=== PATIENT | male | born 1960 | race Caucasian/White ===

== ENCOUNTER → 2016-10-16 | Outpatient (CLI) | payer BC ==
[2015-11-25 16:10] VITALS: BP 128/83
[~2016-10-16] MED LIST: ASPIRIN E.C. 8181 MG PO; OMEGA 3 1,0001 EACH PO
== END ==
LOC: RAD 15:23
DX: R07.9 Chest pain, unspecified (principal); I34.0 Nonrheumatic mitral (valve) insufficiency

== ENCOUNTER → 2016-12-28 | Outpatient (CLI) | payer BC ==
[~2016-12-28] VITALS: Ht 182.9 cm; Wt 91.8 kg
[~2016-12-28] MED LIST changes: +ALEVE220 M1 PO; +NATURAL B COMPL PO; +NEURONTIN100 M1 PO; +NITROSTAT0.4 M1 SL; +PREVACID15 M1
[2016-12-28 11:14] VITALS: BP 139/85
== END ==
LOC: RAD 10:41
DX: I20.1 Angina pectoris with documented spasm (principal); I21.4 Non-ST elevation (NSTEMI) myocardial infarction; E78.5 Hyperlipidemia, unspecified

== ENCOUNTER → 2017-03-19 | Outpatient (CLI) | payer BC ==
[2016-12-28 11:14] VITALS: BP 139/85
[2017-03-19 07:33] LABS: EOS # 0.1 (0.04-0.40); EOS % 1.7 % (0.0-4.0); HEMATOCRIT 45.4 % (42.0-52.0); HEMOGLOBIN 15.6 g/dL (13.5-18.0); LYMPH# 2.1 (1.50-4.00); MEAN CELL VOLUME 87 fl (78-100); MEAN CORPUSCULAR HEMOGLOBIN 30 pg (27-31); MEAN CORPUSCULAR HGB CONC 34 g/dL (33-37); MEAN PLATELET VOLUME 9.1 fl (7.4-10.4); MONO # 0.5 (0.20-0.80); NEU # 2.6 (1.40-6.50); PLATELET COUNT 247 K/mm3 (130-400); RED BLOOD COUNT 5.22 M/mm3 (4.20-5.60); RED CELL DISTRIBUTION WIDTH 12.9 % (11.5-14.5); WHITE BLOOD COUNT 5.3 K/mm3 (4.8-10.8)
[2017-03-19 07:43] LABS: ALBUMIN 3.9 g/dL (3.5-5.0); BUN/CREATININE RATIO 19.1 (6.0-26.0); POTASSIUM 4.4 mmol/L (3.6-5.0); TOTAL BILIRUBIN 0.8 mg/dL (0.2-1.3)
[2017-03-19 07:52] LABS: URINE APPEARANCE CLEAR; URINE BILIRUBIN NEGATIVE (NEGATIVE); URINE BLOOD NEGATIVE (NEGATIVE); URINE COLOR YELLOW; URINE GLUCOSE NEGATIVE (NEGATIVE); URINE KETONE NEGATIVE (NEGATIVE); URINE LEUKOCYTE ESTERASE NEGATIVE (NEGATIVE); URINE NITRATE NEGATIVE (NEGATIVE); URINE PROTEIN(semi-quant) TRACE mg/dL (NEGATIVE); URINE UROBILINOGEN NORMAL (NORMAL); URINE WBC 0-1 /hpf (0-3)
== END ==
LOC: LAB 07:11
PROVIDERS: Nurse Practitioner Family
DX: R63.1 Polydipsia (principal); R00.2 Palpitations; R23.2 Flushing; R53.81 Other malaise; R63.2 Polyphagia

== ENCOUNTER → 2017-09-15 | Outpatient (CLI) | payer BC ==
[2016-12-28 11:14] VITALS: BP 139/85
== END ==
LOC: RAD 09:55
DX: M17.0 Bilateral primary osteoarthritis of knee (principal)

== ENCOUNTER → 2018-02-24 | Outpatient (CLI) | payer OTHER, BC ==
[~2018-02-24] VITALS: Ht 182.9 cm; Wt 94.5 kg
[~2018-02-24] MED LIST changes: +LEVOCETIRIZINE D5 MG PO; +PRILOSEC 20MG20 MG PO; +TYLENOL325 M1 PO
[2018-02-24 09:11] LABS: PROTHROMBIN TIME 10.4 SECONDS (9.0-12.0)
[2018-02-24 09:15] LABS: EOS # 0.1 (0.04-0.40); EOS % 2.3 % (0.0-4.0); HEMATOCRIT 43.4 % (42.0-52.0); HEMOGLOBIN 14.4 g/dL (13.5-18.0); LYMPH# 1.3 (1.50-4.00); MEAN CELL VOLUME 84 fl (78-100); MEAN CORPUSCULAR HEMOGLOBIN 28 pg (27-31); MEAN CORPUSCULAR HGB CONC 33 g/dL (33-37); MEAN PLATELET VOLUME 9.6 fl (7.4-10.4); MONO # 0.4 (0.20-0.80); NEU # 2.5 (1.40-6.50); PLATELET COUNT 204 K/mm3 (130-400); RED BLOOD COUNT 5.16 M/mm3 (4.20-5.60); RED CELL DISTRIBUTION WIDTH 13.2 % (11.5-14.5); WHITE BLOOD COUNT 4.4 K/mm3 (4.8-10.8)
[2018-02-24 09:22] LABS: ALBUMIN 4.5 g/dL (3.5-5.0); CALCIUM 9.1 mg/dL (8.4-10.2); POTASSIUM 4.2 mmol/L (3.6-5.0); TOTAL BILIRUBIN 0.5 mg/dL (0.2-1.3); TOTAL PROTEIN 7.3 g/dL (6.3-8.2)
[2018-02-24 09:23] LABS: URINE APPEARANCE CLEAR; URINE COLOR YELLOW
[2018-02-24 09:24] LABS: URINE BILIRUBIN NEGATIVE (NEGATIVE); URINE BLOOD NEGATIVE (NEGATIVE); URINE GLUCOSE NEGATIVE (NEGATIVE); URINE KETONE NEGATIVE (NEGATIVE); URINE LEUKOCYTE ESTERASE NEGATIVE (NEGATIVE); URINE MUCUS PRESENT (NOT PRESENT); URINE NITRATE NEGATIVE (NEGATIVE); URINE PROTEIN(semi-quant) NEGATIVE (NEGATIVE); URINE UROBILINOGEN NORMAL (NORMAL); URINE WBC 0-1 /hpf (0-3)
[2018-02-24 09:35] VITALS: BP 125/70
== END ==
LOC: RAD 08:42
PROVIDERS: Internal Medicine
DX: Z01.818 Encounter for other preprocedural examination (principal); M25.561 Pain in right knee

== ENCOUNTER → 2018-12-23 | Outpatient (CLI) | payer BC ==
[2018-02-24 09:35] VITALS: BP 125/70
[2018-12-23 08:25] LABS: URINE WBC 0 /hpf (0-3)
[2018-12-23 08:30] LABS: EOS # 0.1 (0.04-0.40); EOS % 1.3 % (0.0-4.0); HEMATOCRIT 44.7 % (42.0-52.0); HEMOGLOBIN 15.3 g/dL (13.5-18.0); LYMPH# 1.4 (1.50-4.00); MEAN CELL VOLUME 85 fl (78-100); MEAN CORPUSCULAR HEMOGLOBIN 29 pg (27-31); MEAN CORPUSCULAR HGB CONC 34 g/dL (33-37); MEAN PLATELET VOLUME 9.4 fl (7.4-10.4); MONO # 0.5 (0.20-0.80); NEU # 2.6 (1.40-6.50); PLATELET COUNT 248 K/mm3 (130-400); RED BLOOD COUNT 5.27 M/mm3 (4.20-5.60); RED CELL DISTRIBUTION WIDTH 13.8 % (11.5-14.5); WHITE BLOOD COUNT 4.6 K/mm3 (4.8-10.8)
[2018-12-23 08:39] LABS: URINE APPEARANCE CLEAR; URINE BILIRUBIN NEGATIVE (NEGATIVE); URINE BLOOD NEGATIVE (NEGATIVE); URINE COLOR YELLOW; URINE GLUCOSE NEGATIVE (NEGATIVE); URINE KETONE NEGATIVE (NEGATIVE); URINE LEUKOCYTE ESTERASE NEGATIVE (NEGATIVE); URINE NITRATE NEGATIVE (NEGATIVE); URINE PROTEIN(semi-quant) TRACE mg/dL (NEGATIVE); URINE UROBILINOGEN NORMAL (NORMAL)
[2018-12-23 08:52] LABS: ALBUMIN 4.3 g/dL (3.5-5.0); POTASSIUM 4.2 mmol/L (3.5-5.1)
[2018-12-23 08:53] LABS: CALCIUM 9.6 mg/dL (8.3-10.5)
[2018-12-23 08:54] LABS: TOTAL PROTEIN 7.1 g/dL (6.4-8.3)
[2018-12-23 08:56] LABS: TOTAL BILIRUBIN 0.7 mg/dL (0.2-1.2)
== END ==
LOC: LAB 08:17
PROVIDERS: Internal Medicine
DX: Z00.00 Encounter for general adult medical examination without abnormal findings (principal); Z12.11 Encounter for screening for malignant neoplasm of colon

== ENCOUNTER 2019-07-06 08:32 | Emergency (ER) | payer BC ==
[~2019-07-06] VITALS: Wt 97.3 kg
[2019-07-06 09:01] LABS: EOS # 0.1 (0.04-0.40); HEMATOCRIT 43.7 % (42.0-52.0); HEMOGLOBIN 14.2 g/dL (13.5-18.0); LYMPH# 1.6 (1.50-4.00); MEAN CELL VOLUME 83 fl (78-100); MEAN CORPUSCULAR HEMOGLOBIN 27 pg (27-31); MEAN CORPUSCULAR HGB CONC 33 g/dL (33-37); MEAN PLATELET VOLUME 9.5 fl (7.4-10.4); MONO # 0.4 (0.20-0.80); NEU # 1.8 (1.40-6.50); PLATELET COUNT 255 K/mm3 (130-400); RED BLOOD COUNT 5.26 M/mm3 (4.20-5.60); RED CELL DISTRIBUTION WIDTH 13.9 % (11.5-14.5)
[2019-07-06] MEDS ORDERED: FLONASE ALLERG9.9 ML NS (09:01)
[2019-07-06 09:13] LABS: ALBUMIN 4.4 g/dL (3.5-5.0); POTASSIUM 4.1 mmol/L (3.5-5.1); SODIUM 138 mmol/L (136-145)
[2019-07-06 09:15] LABS: CALCIUM 8.9 mg/dL (8.3-10.5)
[2019-07-06 09:16] LABS: GLUCOSE 110 mg/dL (75-110); TOTAL PROTEIN 7.6 g/dL (6.4-8.3)
[2019-07-06 09:17] LABS: CARBON DIOXIDE 25 mmol/L (22-29)
[2019-07-06 09:18] LABS: TOTAL BILIRUBIN 0.5 mg/dL (0.2-1.2)
[2019-07-06 09:21] LABS: AST-SGOT 33 U/L (5-34)
[2019-07-06 09:22] LABS: ALT/SGPT 44 U/L (0-55)
[2019-07-06 09:35] LABS: D-DIMER 0.37 mg/L FEU (0.15-0.50); TROPONIN-I < 0.03 ng/mL (<0.030)
[2019-07-06] MEDS ORDERED: ZITHROMAX Z PA250 MG PO (10:18)
[2019-07-06 12:07] VITALS: BP 127/77
== END 2019-07-06 10:41 | disposition home or self-care (01) ==
LOC: ED 08:32
PROVIDERS: Physician Assistant
DX: J40 Bronchitis, not specified as acute or chronic (principal); R07.89 Other chest pain; I25.2 Old myocardial infarction; K21.9 Gastro-esophageal reflux disease without esophagitis; Z79.51 Long term (current) use of inhaled steroids; Z79.82 Long term (current) use of aspirin; Z90.89 Acquired absence of other organs
CPT/HCPCS: J1885

== ENCOUNTER → 2020-01-02 | Outpatient (CLI) | payer BC ==
[~2020-01-02] MED LIST changes: +FLONASE ALLERG9.9 ML NS; +ZITHROMAX Z PA250 MG PO
[2020-01-02 09:58] LABS: EOS # 0.1 (0.04-0.40); EOS % 1.9 % (0.0-4.0); HEMATOCRIT 45.2 % (42.0-52.0); HEMOGLOBIN 14.7 g/dL (13.5-18.0); LYMPH# 1.5 (1.50-4.00); MEAN CELL VOLUME 82 fl (78-100); MEAN CORPUSCULAR HEMOGLOBIN 27 pg (27-31); MEAN CORPUSCULAR HGB CONC 33 g/dL (33-37); MEAN PLATELET VOLUME 9.1 fl (7.4-10.4); MONO # 0.3 (0.20-0.80); NEU # 2.2 (1.40-6.50); PLATELET COUNT 230 K/mm3 (130-400); RED BLOOD COUNT 5.52 M/mm3 (4.20-5.60); RED CELL DISTRIBUTION WIDTH 15.1 % (11.5-14.5); WHITE BLOOD COUNT 4.2 K/mm3 (4.8-10.8)
[2020-01-02 10:19] LABS: ALBUMIN 4.4 g/dL (3.5-5.0); POTASSIUM 4.4 mmol/L (3.5-5.1)
[2020-01-02 10:21] LABS: CALCIUM 9.1 mg/dL (8.3-10.5)
[2020-01-02 10:22] LABS: TOTAL PROTEIN 7.2 g/dL (6.4-8.3)
[2020-01-02 10:24] LABS: TOTAL BILIRUBIN 0.6 mg/dL (0.2-1.2)
[2020-01-02 10:36] LABS: URINE APPEARANCE CLEAR; URINE BILIRUBIN NEGATIVE (NEGATIVE); URINE BLOOD NEGATIVE (NEGATIVE); URINE COLOR YELLOW; URINE GLUCOSE NEGATIVE (NEGATIVE); URINE KETONE NEGATIVE (NEGATIVE); URINE LEUKOCYTE ESTERASE NEGATIVE (NEGATIVE); URINE MUCUS PRESENT (NOT PRESENT); URINE NITRATE NEGATIVE (NEGATIVE); URINE PROTEIN(semi-quant) TRACE mg/dL (NEGATIVE); URINE UROBILINOGEN NORMAL (NORMAL); URINE WBC 0-1 /hpf (0-3)
== END ==
LOC: LAB 09:35
PROVIDERS: Internal Medicine
DX: Z00.00 Encounter for general adult medical examination without abnormal findings (principal); Z12.5 Encounter for screening for malignant neoplasm of prostate; Z12.11 Encounter for screening for malignant neoplasm of colon; K90.9 Intestinal malabsorption, unspecified

== ENCOUNTER 2020-12-23 11:22 | Emergency (ER) | payer BC ==
[2020-12-23 11:54] LABS: BASO # 0.02 (0.02-0.10); EOS # 0.04 (0.04-0.40); EOS % 0.8 % (0.0-4.0); HEMATOCRIT 47.6 % (42.0-52.0); HEMOGLOBIN 16.5 g/dL (13.5-18.0); LYMPH# 1.86 (1.50-4.00); MEAN CELL VOLUME 87 fl (78-100); MEAN CORPUSCULAR HEMOGLOBIN 30 pg (27-31); MEAN CORPUSCULAR HGB CONC 35 g/dL (33-37); MEAN PLATELET VOLUME 9.1 fl (7.4-10.4); MONO # 0.39 (0.20-0.80); NEU # 2.66 (1.40-6.50); PLATELET COUNT 204 K/mm3 (130-400); RED CELL DISTRIBUTION WIDTH 13.5 % (11.5-14.5)
[2020-12-23 12:04] LABS: SODIUM 138 mmol/L (136-145)
[2020-12-23 12:05] LABS: ALBUMIN 4.2 g/dL (3.5-5.0); CALCIUM 9.7 mg/dL (8.3-10.5)
[2020-12-23 12:07] LABS: GLUCOSE 90 mg/dL (75-110); TOTAL PROTEIN 7.2 g/dL (6.4-8.3)
[2020-12-23 12:08] LABS: CARBON DIOXIDE 25 mmol/L (22-29); TOTAL BILIRUBIN 0.6 mg/dL (0.2-1.2)
[2020-12-23 12:12] LABS: AST-SGOT 26 U/L (5-34)
[2020-12-23 12:14] LABS: ALT/SGPT 43 U/L (0-55)
[2020-12-23 12:23] LABS: TROPONIN-I < 0.03 ng/mL (<0.030)
[2020-12-23 13:13] LABS: D-DIMER 0.15 mg/L FEU (0.15-0.50)
[2020-12-23 13:40] LABS: PH-URINE 5.5 (5.0 - 8.0); URINE APPEARANCE CLEAR; URINE BILIRUBIN NEGATIVE (NEGATIVE); URINE BLOOD NEGATIVE (NEGATIVE); URINE COLOR YELLOW; URINE GLUCOSE NEGATIVE (NEGATIVE); URINE KETONE NEGATIVE (NEGATIVE); URINE LEUKOCYTE ESTERASE NEGATIVE (NEGATIVE); URINE NITRATE NEGATIVE (NEGATIVE); URINE PROTEIN(semi-quant) NEGATIVE (NEGATIVE); URINE UROBILINOGEN NORMAL (NORMAL)
[2020-12-23 14:00] VITALS: BP 143/85
== END 2020-12-23 13:39 | disposition home or self-care (01) ==
LOC: ED 11:22
PROVIDERS: Nurse Practitioner
DX: R53.83 Other fatigue (principal); R25.2 Cramp and spasm

== ENCOUNTER → 2020-12-23 | Outpatient (CLI) | payer BC | LOC: LAB 10:10 | DX: Z20.822 Contact with and (suspected) exposure to COVID-19 (principal) ==

== ENCOUNTER → 2020-12-24 | Outpatient (CLI) | payer BC ==
[2020-12-24 11:42] LABS: BASO # 0.02 (0.02-0.10); EOS # 0.04 (0.04-0.40); EOS % 0.9 % (0.0-4.0); HEMATOCRIT 49.4 % (42.0-52.0); HEMOGLOBIN 16.8 g/dL (13.5-18.0); MEAN CELL VOLUME 87 fl (78-100); MEAN CORPUSCULAR HEMOGLOBIN 30 pg (27-31); MEAN CORPUSCULAR HGB CONC 34 g/dL (33-37); MEAN PLATELET VOLUME 9.3 fl (7.4-10.4); MONO # 0.29 (0.20-0.80); NEU # 2.55 (1.40-6.50); PLATELET COUNT 225 K/mm3 (130-400); RED BLOOD COUNT 5.67 M/mm3 (4.20-5.60); RED CELL DISTRIBUTION WIDTH 13.5 % (11.5-14.5); WHITE BLOOD COUNT 4.4 K/mm3 (4.8-10.8)
[2020-12-24 11:48] LABS: POTASSIUM 4.7 mmol/L (3.5-5.1); SODIUM 137 mmol/L (136-145)
[2020-12-24 11:49] LABS: ALBUMIN 4.4 g/dL (3.5-5.0); CALCIUM 9.8 mg/dL (8.3-10.5)
[2020-12-24 11:51] LABS: GLUCOSE 101 mg/dL (75-110); TOTAL PROTEIN 7.6 g/dL (6.4-8.3)
[2020-12-24 11:52] LABS: CARBON DIOXIDE 26 mmol/L (22-29)
[2020-12-24 11:53] LABS: TOTAL BILIRUBIN 0.6 mg/dL (0.2-1.2)
[2020-12-24 11:56] LABS: AST-SGOT 26 U/L (5-34)
[2020-12-24 11:58] LABS: ALT/SGPT 44 U/L (0-55); MAGNESIUM 2.05 mg/dL (1.60-2.60)
[2020-12-24 13:00] LABS: ERYTHROCYTE SEDIMENTATION RATE 3 mm/hr (0-20)
== END ==
LOC: LAB 10:57
PROVIDERS: Internal Medicine
DX: Z00.00 Encounter for general adult medical examination without abnormal findings (principal); M79.10 Myalgia, unspecified site

== ENCOUNTER → 2021-12-17 | Outpatient (CLI) | payer BC | LOC: RAD 08:00 | DX: M17.12 Unilateral primary osteoarthritis, left knee (principal); M25.561 Pain in right knee ==

== ENCOUNTER → 2022-01-20 | Outpatient (CLI) | payer BC ==
[2022-01-20 09:01] LABS: URINE WBC 0 /hpf (0-3)
[2022-01-20 09:11] LABS: BASO # 0.01 K/mm3 (0.02-0.10); EOS # 0.04 K/mm3 (0.04-0.40); EOS % 0.9 % (0.0-4.0); HEMATOCRIT 46.4 % (42.0-52.0); HEMOGLOBIN 15.6 g/dL (13.5-18.0); LYMPH# 1.48 K/mm3 (1.50-4.00); MEAN CELL VOLUME 87 fl (78-100); MEAN CORPUSCULAR HEMOGLOBIN 29 pg (27-31); MEAN CORPUSCULAR HGB CONC 34 g/dL (33-37); MEAN PLATELET VOLUME 9.4 fl (7.4-10.4); MONO # 0.26 K/mm3 (0.20-0.80); NEU # 2.79 K/mm3 (1.40-6.50); PLATELET COUNT 168 K/mm3 (130-400); RED BLOOD COUNT 5.36 M/mm3 (4.20-5.60); WHITE BLOOD COUNT 4.6 K/mm3 (4.8-10.8)
[2022-01-20 09:18] LABS: ALBUMIN 4.3 g/dL (3.5-5.0); POTASSIUM 4.3 mmol/L (3.5-5.1)
[2022-01-20 09:19] LABS: CALCIUM 9.4 mg/dL (8.3-10.5)
[2022-01-20 09:20] LABS: TOTAL PROTEIN 7.1 g/dL (6.4-8.3)
[2022-01-20 09:22] LABS: TOTAL BILIRUBIN 0.6 mg/dL (0.2-1.2)
[2022-01-20 09:26] LABS: URINE APPEARANCE CLEAR; URINE BILIRUBIN NEGATIVE (NEGATIVE); URINE BLOOD NEGATIVE (NEGATIVE); URINE COLOR YELLOW; URINE GLUCOSE NEGATIVE (NEGATIVE); URINE KETONE NEGATIVE (NEGATIVE); URINE LEUKOCYTE ESTERASE NEGATIVE (NEGATIVE); URINE NITRATE NEGATIVE (NEGATIVE); URINE PROTEIN(semi-quant) NEGATIVE (NEGATIVE); URINE UROBILINOGEN NORMAL (NORMAL)
[2022-01-20 09:27] LABS: MAGNESIUM 1.92 mg/dL (1.60-2.60)
[2022-01-20 21:36] LABS: CREATININE OTHER SOURCE 41 mg/dL (47-110)
== END ==
LOC: LAB 08:51
PROVIDERS: Internal Medicine
DX: Z00.00 Encounter for general adult medical examination without abnormal findings (principal); Z23 Encounter for immunization; M79.10 Myalgia, unspecified site; G47.19 Other hypersomnia

== ENCOUNTER → 2023-04-01 | Outpatient (CLI) | payer BC ==
[2023-04-01 12:36] LABS: BASO # 0.02 K/mm3 (0.02-0.10); EOS # 0.08 K/mm3 (0.04-0.40); EOS % 1.4 % (0.0-4.0); HEMATOCRIT 43.7 % (42.0-52.0); HEMOGLOBIN 15.1 g/dL (13.5-18.0); MEAN CELL VOLUME 89 fl (78-100); MEAN CORPUSCULAR HEMOGLOBIN 31 pg (27-31); MEAN CORPUSCULAR HGB CONC 35 g/dL (33-37); MEAN PLATELET VOLUME 9.1 fl (7.4-10.4); MONO # 0.38 K/mm3 (0.20-0.80); PLATELET COUNT 191 K/mm3 (130-400); RED BLOOD COUNT 4.93 M/mm3 (4.20-5.60); RED CELL DISTRIBUTION WIDTH 12.6 % (11.5-14.5); WHITE BLOOD COUNT 5.6 K/mm3 (4.8-10.8)
[2023-04-01 12:43] LABS: ALBUMIN 4.4 g/dL (3.5-5.0)
[2023-04-01 12:44] LABS: CALCIUM 9.8 mg/dL (8.3-10.5)
[2023-04-01 12:45] LABS: TOTAL PROTEIN 7.1 g/dL (6.4-8.3)
[2023-04-01 12:47] LABS: TOTAL BILIRUBIN 0.6 mg/dL (0.2-1.2)
[2023-04-01 12:52] LABS: MAGNESIUM 1.99 mg/dL (1.60-2.60)
[2023-04-01 20:54] LABS: TESTOSTERONE 522 ng/dL (221-716)
== END ==
LOC: LAB 12:12
PROVIDERS: Internal Medicine
DX: Z00.00 Encounter for general adult medical examination without abnormal findings (principal)

== ENCOUNTER → 2023-04-06 | Outpatient (CLI) | payer BC ==
[2023-04-06 12:38] VITALS: BP 144/84
== END ==
LOC: AMSURD 12:18
DX: G44.009 Cluster headache syndrome, unspecified, not intractable (principal)

== ENCOUNTER → 2023-11-11 | Outpatient (CLI) | payer BC ==
[~2023-11-11] MED LIST changes: +AMLODIPINE BESYLATE PO; +EZETIMIBE10 M1 PO; +ISMO 20MG20 MG PO; +MULTIVITAMIN
[2023-11-11 12:57] LABS: BASO # 0.04 K/mm3 (0.02-0.10); EOS # 0.27 K/mm3 (0.04-0.40); EOS % 3.5 % (0.0-4.0); HEMATOCRIT 38.2 % (42.0-52.0); HEMOGLOBIN 12.4 g/dL (13.5-18.0); LYMPH# 1.48 K/mm3 (1.50-4.00); MEAN CELL VOLUME 93 fl (78-100); MEAN CORPUSCULAR HEMOGLOBIN 30 pg (27-31); MEAN CORPUSCULAR HGB CONC 33 g/dL (33-37); MEAN PLATELET VOLUME 8.9 fl (7.4-10.4); MONO # 0.59 K/mm3 (0.20-0.80); NEU # 5.21 K/mm3 (1.40-6.50); PLATELET COUNT 397 K/mm3 (130-400); RED CELL DISTRIBUTION WIDTH 13.7 % (11.5-14.5); WHITE BLOOD COUNT 7.6 K/mm3 (4.8-10.8)
[2023-11-11 13:00] LABS: ALBUMIN 4.1 g/dL (3.5-5.0)
[2023-11-11 13:03] LABS: TOTAL PROTEIN 6.8 g/dL (6.4-8.3)
[2023-11-11 13:05] LABS: TOTAL BILIRUBIN 0.4 mg/dL (0.2-1.2)
[2023-11-11 13:10] LABS: MAGNESIUM 2.32 mg/dL (1.60-2.60)
== END ==
LOC: LAB 12:31
PROVIDERS: Internal Medicine
DX: I25.10 Atherosclerotic heart disease of native coronary artery without angina pectoris (principal)

== ENCOUNTER 2023-12-01 08:01 | Outpatient (RCR) | payer BC | END 2023-12-27 | disposition home or self-care (01) | LOC: CARDREHAB | DX: Z48.812 Encounter for surgical aftercare following surgery on the circulatory system (principal); Z95.1 Presence of aortocoronary bypass graft; I25.10 Atherosclerotic heart disease of native coronary artery without angina pectoris ==

== ENCOUNTER → 2023-12-15 | Outpatient (CLI) | payer BC ==
[~2023-12-15] VITALS: Ht 182.9 cm; Wt 91.8 kg
--- NOTE | 2023-12-15 08:25 | NUR ---
OXYGEN PLACED AT 12L BY NONREBREATHER PER ORDER.
[2023-12-15 08:28] VITALS: BP 124/79
== END ==
LOC: AMSURD 08:10
DX: G44.009 Cluster headache syndrome, unspecified, not intractable (principal)

== ENCOUNTER → 2023-12-31 | Outpatient (CLI) | payer BC ==
[2023-12-31 07:26] LABS: CALCIUM 9.1 mg/dL (8.3-10.5)
[2023-12-31 07:28] LABS: TOTAL PROTEIN 6.9 g/dL (6.2-8.1)
[2023-12-31 07:30] LABS: TOTAL BILIRUBIN 0.4 mg/dL (0.2-1.2)
== END ==
LOC: LAB 07:03
PROVIDERS: Internal Medicine
DX: E78.2 Mixed hyperlipidemia (principal)

== ENCOUNTER 2024-04-20 18:18 | Emergency (ER) | payer BC ==
[2024-04-20] MEDS ORDERED: REPATHA SU140 MG/1 M (18:49)
[2024-04-20] MEDS ORDERED: TOPROL XL 50MG50 MG PO (18:50)
[2024-04-20] MEDS ORDERED: TRAMADOL 50 MG TAB PO (18:51)
[2024-04-20] MEDS ORDERED: XYZAL5 MG PO (18:51)
[2024-04-20 19:01] LABS: BASO # 0.01 K/mm3 (0.02-0.10); EOS # 0.19 K/mm3 (0.04-0.40); EOS % 3.3 % (0.0-4.0); HEMATOCRIT 42.8 % (42.0-52.0); HEMOGLOBIN 14.1 g/dL (13.5-18.0); MEAN CELL VOLUME 83 fl (78-100); MEAN CORPUSCULAR HEMOGLOBIN 27 pg (27-31); MEAN CORPUSCULAR HGB CONC 33 g/dL (33-37); MONO # 0.56 K/mm3 (0.20-0.80); NEU # 2.93 K/mm3 (1.40-6.50); PLATELET COUNT 168 K/mm3 (130-400); RED BLOOD COUNT 5.14 M/mm3 (4.20-5.60); RED CELL DISTRIBUTION WIDTH 14.5 % (11.5-14.5); WHITE BLOOD COUNT 5.8 K/mm3 (4.8-10.8)
[2024-04-20 19:05] LABS: ALBUMIN 4.1 g/dL (3.4-4.8); SODIUM 139 mmol/L (136-145)
[2024-04-20 19:06] LABS: CALCIUM 8.9 mg/dL (8.3-10.5)
[2024-04-20 19:07] LABS: GLUCOSE 87 mg/dL (75-110); TOTAL PROTEIN 7.1 g/dL (6.2-8.1)
[2024-04-20 19:08] LABS: CARBON DIOXIDE 25 mmol/L (23-31)
[2024-04-20 19:09] LABS: TOTAL BILIRUBIN 0.3 mg/dL (0.2-1.2)
[2024-04-20 19:12] LABS: AST-SGOT 31 U/L (5-34)
[2024-04-20 19:14] LABS: ALT/SGPT 34 U/L (0-55)
[2024-04-20 19:24] LABS: TROPONIN-I < 0.030 ng/mL (0.00-0.033)
[2024-04-20 19:41] LABS: D-DIMER 0.32 mg/L FEU (0.15-0.50)
[2024-04-20 23:45] VITALS: BP 134/85
== END 2024-04-20 23:45 | disposition short-term general hospital (02) ==
LOC: ED 18:18
PROVIDERS: Nurse Practitioner
DX: I20.9 Angina pectoris, unspecified (principal); Z95.1 Presence of aortocoronary bypass graft; Z98.61 Coronary angioplasty status; Z79.82 Long term (current) use of aspirin